=== PATIENT | male | born 1975 | race Caucasian/White ===

== ENCOUNTER 2019-02-12 22:15 | Emergency (ER) | payer MEDICAID, OTHER ==
[~2019-02-12] VITALS: Ht 167.6 cm; Wt 77.0 kg
[~2019-02-12 22:15] MED LIST: ALBU8.5H5 INH; AZIT250T PO; BEN25 PO; CIPR500T4 PO; METR500T PO; PRED20TA PO
[2019-02-12 22:25] VITALS: Ht 167.6 cm; Wt 77.0 kg
[2019-02-13] MEDS ORDERED: ONDANSETRON 4 MG INJ IV STA (00:51)
[2019-02-13] MEDS ORDERED: morphine 4 MG/ML VIAL IV STA (00:51)
[2019-02-13] MEDS ORDERED: SOD CHLORIDE 0.9% 1,000 ML IV STA (00:51)
--- NOTE | 2019-02-13 02:15 | ERD ---
ER Documentation Chief Complaint Chief Complaint L GROIN PAIN, RADIATING TO LOWER BACK AND L TESTICLE X'S 3 DAYS HPI 43-year-old male with no significant past medical history presenting to the emergency department complaining of left lower quadrant pain which is severe and constant which began 5 days ago. Symptoms have worsened overall. Patient has had nausea but no vomiting or diarrhea. He took ibuprofen at home with some rel ief. Last ibuprofen was taken at 8 PM today. He has history of diverticulitis and he states symptoms are similar to this. He denies any other symptoms currently. ROS All systems reviewed and are negative except as per history of present illness. Medications Home Meds Active Scripts Naproxen* (Naprosyn*) 500 Mg Tablet, 500 MG PO BID PRN for PAIN AND/OR INFLAMMATION, #30 TAB Prov:SANA GONZALEZ PA-C 02/13/19 Hydrocodone/Acetaminophen ([place] 5-325 Tablet) 1 Each Tablet, 1 TAB PO Q6H PRN for PAIN, #7 TAB Prov:SANA GONZALEZ PA-C 02/13/19 Metronidazole* (Flagyl*) 500 Mg Tablet, 500 MG PO TID for 7 Days, TAB Prov:SANA GONZALEZ PA-C 02/13/19 Ciprofloxacin Hcl* (Ciprofloxacin Hcl*) 500 Mg Tablet, 500 MG PO BID for 7 Days, TAB Prov:SANA GONZALEZ PA-C 02/13/19 Diphenhydramine Hcl* (Benadryl*) 25 Mg Cap, 25 MG PO Q6, #20 CAP Prov:SANJUANITA MEYERS MD 09/17/16 Prednisone* (Prednisone*) 20 Mg Tab, 60 MG PO DAILY for 4 Days, TAB Prov:SANJUANITA MEYERS MD 09/17/16 Metronidazole* (Flagyl*) 500 Mg Tablet, 500 MG PO TID for 7 Days, TAB Prov:MANJEET ALONSO PA-C 05/09/16 Ciprofloxacin Hcl* (Ciprofloxacin Hcl*) 500 Mg Tablet, 500 MG PO BID for 7 Days, TAB Prov:MANJEET ALONSO PA-C 05/09/16 Prednisone* (Prednisone*) 20 Mg Tab, 20 MG PO BID for 5 Days Prov:EVANS HARDY PA-C 04/23/15 Albuterol Sulfate* (Albuterol Sulfate* HFA) 8.5 Gm Hfa.aer.ad, 1-2 PUFF INH Q4 PRN for SHORTNESS OF BREATH, #1 EA Prov:EVANS HARDY PA-C 04/23/15 Azithromycin* (Zithromax*) 250 Mg Tablet, 250 MG PO .ZPACK DIRECTED, #6 TAB TAKE 500 MG (2 TABS) THE FIRST DAY THEN 250 MG (1 TAB) DAYS 2-5 Prov:VEANS HARDY PA-C 04/23/15 Reported Medications [None] No Conflict Check 02/20/11 Allergies Allergies: Coded Allergies: No Known Drug Allergies (Verified Allergy, Mild, 02/20/11) PMhx/Soc History of Surgery: No Anesthesia Reaction: No Hx Neurological Disorder: No Hx Respiratory Disorders: Yes (asthma) Hx Cardiac Disorders: No Hx Psychiatric Problems: No Hx Miscellaneous Medical Probl: No Hx Alcohol Use: No Hx Substance Use: No Hx Tobacco Use: No Smoking Status: Never smoker FmHx Family History: No diabetes Physical Exam Vitals Vital Signs Date Temp Pulse Resp B/P (MAP) Pulse Ox O2 O2 Flow FiO2 Time Delivery Rate 02/13/19 98.2 82 18 135/88 99 Room Air 02:52 (104) 02/12/19 98.4 101 18 145/90 99 22:25 (108) Physical Exam Const: No acute distress Head: Atraumatic Eyes: Normal Conjunctiva ENT: Normal External Ears, Nose and Mouth. Neck: Full range of motion. No meningismus. Resp: Clear to auscultation bilaterally Cardio: Regular rate and rhythm, no murmurs Abd: Soft, tender to palpation of the left lower quadrant with rebound tenderness, no McBurney's point tenderness, non distended. Normal bowel sounds Skin: No petechiae or rashes Back: Tenderness palpation of the left flank region. Ext: No cyanosis, or edema Neur: Awake and alert Psych: Normal Mood and Affect Result Diagram: 02/13/1910802/13/19108 Results 24 hrs Laboratory Tests Test 02/13/19 01:09 White Blood Count 12.2 10^3/ul Red Blood Count 4.61 10^6/ul Hemoglobin 13.2 g/dl Hematocrit 38.1 % Mean Corpuscular Volume 82.6 fl Mean Corpuscular Hemoglobin 28.6 pg Mean Corpuscular Hemoglobin Concent 34.6 g/dl Red Cell Distribution Width 12.4 % Platelet Count 201 10^3/UL Mean Platelet Volume 9.8 fl Immature Granulocytes % 0.200 % Neutrophils % 72.9 % Lymphocytes % 16.4 % Monocytes % 9.1 % Eosinophils % 1.2 % Basophils % 0.2 % Nucleated Red Blood Cells % 0.0 /100WBC Immature Granulocytes # 0.030 10^3/ul Neutrophils # 8.9 10^3/ul Lymphocytes # 2.0 10^3/ul Monocytes # 1.1 10^3/ul Eosinophils # 0.2 10^3/ul Basophils # 0.0 10^3/ul Nucleated Red Blood Cells # 0.0 10^3/ul Prothrombin Time 12.6 Sec Prothrombin Time Ratio 1.0 INR International Normalized Ratio 0.93 Activated Partial Thromboplast Time 30.2 Sec Urine Color COLORLESS Urine Clarity CLEAR Urine pH 7.0 Urine Specific [place] 1.004 Urine Ketones NEGATIVE mg/dL Urine Nitrite NEGATIVE mg/dL Urine Bilirubin NEGATIVE mg/dL Urine Urobilinogen NEGATIVE mg/dL Urine Leukocyte Esterase NEGATIVE [place]/ul Urine Hemoglobin NEGATIVE mg/dL Urine Glucose NEGATIVE mg/dL Urine Total Protein NEGATIVE mg/dl Sodium Level 136 mmol/L Potassium Level 3.8 mmol/L Chloride Level 100 mmol/L Carbon Dioxide Level 28 mmol/L Anion Gap 8 Blood Urea Nitrogen 13 mg/dl Creatinine 0.77 mg/dl Est Glomerular Filtrat Rate mL/min > 60 mL/min Glucose Level 141 mg/dl Calcium Level 9.1 mg/dl Total Bilirubin 0.9 mg/dl Direct Bilirubin 0.00 mg/dl Indirect Bilirubin 0.9 mg/dl Aspartate Amino Transf (AST/SGOT) 24 IU/L Alanine Aminotransferase (ALT/SGPT) 34 IU/L Alkaline Phosphatase 52 IU/L Total Protein 7.0 g/dl Albumin 4.1 g/dl Globulin 2.90 g/dl Albumin/Globulin Ratio 1.41 Lipase 40 U/L Current Medications Medications Dose Sig/Santhosh Start Time Status Last (Trade) Ordered Route PRN Stop Time Admin Dose Reason Admin Sodium 1,000 ml @ Q1H STAT 02/13/19 DC 02/13/19 Chloride 1,000 mls/hr IV 00:51 01:10 02/13/19 01:50 Morphine 4 mg ONCE STAT 02/13/19 DC 5/29/19 Sulfate IV 00:51 01:27 (morphine) 02/13/19 00:53 Ondansetron 4 mg ONCE STAT 02/13/19 DC 02/13/19 HCl (Zofran IV 00:51 01:27 Inj) 02/13/19 00:53 [place] [id number] Radiology Main Line: [phone] DIAGNOSTIC IMAGING REPORT Patient: SARAH GONSALES : 1975 Age: 43 Sex: M MR #: [id number] [facility] #: [id number] DOS: 02/13/19 0051 Ordering MD: SANA GONZALEZ PA-C Location: [facility] Room/Bed: AMENDMENT: 02/13/2019 2:27:27 AM Pipe James Md ADDENDUM: Corrected Impression 1: 1. Proximal to mid sigmoid colon wall thickening with multiple diverticuli and surrounding infiltration compatible with acute diverticulitis. Findings on the current examination around a similar location and overall appearance has the prior 2016 study. Small amount of free fluid. No free intraperitoneal gas to suggest a perforation. PROCEDURE: CT Abdomen and Pelvis without contrast. CLINICAL INDICATION: Pain. TECHNIQUE: CT scan of the abdomen and pelvis was performed on a multidetector slice CT scanner. No intravenous contrast material was utilized. Sagittal and coronal reformatted images were obtained from the axial source images. Images were reviewed on a high-resolution PACS workstation. Exam CTDlvol = 13 mGy and DLP = 154 Gy-cm. One of the following 3 dose reduction techniques were used: Automated exposure control; adjustment of the mA and/or kV according to patient size; or use of iterative reconstruction technique. DICOM images are available. COMPARISON: 05/09/2016. FINDINGS: There is no bowel obstruction or ileus. The appendix is visualized and normal in size. There is redemonstrated distal left and sigmoid colon diverticulosis. Th ere is proximal to mid sigmoid colon wall thickening with surrounding fluid and infiltration with multiple diverticuli compatible with acute diverticulitis.There is a small amount of free fluid. There is no free intraperitoneal gas. The liver is prominent measuring 18.5 cm length and diffusely hypodense/fatty. No intrahepatic lesions are identified. The gallbladder is normal in appearance. There is no definite biliary ductal dilation. Pancreas is normal in appearance. The spleen is unremarkable. There are no adrenal masses. The aorta is normal caliber. Kidneys are normal in appearance without hydronephrosis, mass or calculus. There is no perinephric collection. Ureters are of normal caliber and without evidence for an obstructing calculus. The urinary bladder is contracted. Limited evaluation of the lung bases is unremarkable. The bones are unremarkable. IMPRESSION: 1. Proximal to mid sigmoid colon wall thickening with multiple diverticuli and surrounding infiltration compatible with acute diverticulitis. Findings on the current examination around a similar location and overall appearance has the prior 2016 study. Small amount of free fluid.. Adrenal gas to suggest a perforation. 2. No obstructive uropathy. Contracted urinary bladder. 3. Enlarged fatty liver. 4. Otherwise negative. RPTAT: HMVK .Pipe James MD, MD Date Time Electronically viewed and signed by .Pipe James MD, on 02/13/2019 02:29 .K/ CC: SANA GONZALEZ PA-C [id number] Procedures/MDM 43-year-old male presenting to the emergency department complaining of left lower quadrant abdominal pain and left flank pain. He was placed in a gurney and was administered IV fluids, IV morphine, IV Zofran with good response. On reevaluation he was improved. CBC: no e/o of systemic infection or severe anemia CMP: no e/o severe acidosis, alkalosis, renal failure, diabetic ketoacidosis, liver disease Lipase: no e/o pancreatitis PT/INR: normal coagulation Urine: no e/o acute infection or hematuria Medical decision making: Symptoms likely secondary to acute diverticulitis. Patient's gastrointestinal symptoms have stabilized while in the department. No evidence of severe dehydration, sepsis, or surgical abdomen. Extensive discussion with family and patient that occult disease cannot be ruled out. 8 hour recheck for repeat abdominal exam is planned. No evidence of life- threatening pathology at time of discharge. Pt/family in agreement with discharge plan/diagnosis. Pt/family advised to return immediately with any new or worsening symptoms. Follow-up with primary care physician within the next 1- 2 days. Patient's blood pressure was elevated (>120/80) but appears stable without evidence of hypertension emergency or urgency. The patient is to follow-up and pursue outpatient monitoring and therapy with their primary care physician within 1 week and return immediately if they have any new, worsening, or concerning symptoms. Disclaimer: Inadvertent spelling and grammatical errors are likely due to EHR/dictation software use and do not reflect on the overall quality of patient care. Also, please note that the electronic time recorded on this note does not necessarily reflect the actual time of the patient encounter. Departure Diagnosis: Primary Impression: Acute diverticulitis Condition: Fair Patient Instructions: Abdominal Pain SANA GONZALEZ PA-C February 13, 2019 02:15
[2019-02-13] MEDS ORDERED: HYDR-4011 PO (02:31)
[2019-02-13] MEDS ORDERED: CIPR500T4 PO (02:31)
[2019-02-13] MEDS ORDERED: NAPR-985 PO (02:31)
[2019-02-13] MEDS ORDERED: METR500T PO (02:31)
[2019-02-13 02:52] VITALS: BP 135/88; PULSE 82; RESP 18
== END 2019-02-13 02:58 | disposition home or self-care (01) ==
LOC: FTE 22:15
DX: K57.32 Diverticulitis of large intestine without perforation or abscess without bleeding (principal); J45.909 Unspecified asthma, uncomplicated
CPT/HCPCS: 36415; 74176; 80053; 81003; 83690; 85025; 85610; 85730; 96361; 96374; 96375; J2270; J2405; J7030; Z7502